=== PATIENT | male | born 2005 | race Caucasian/White ===

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

== ENCOUNTER 2023-04-24 10:14 | Emergency (ER) | payer MEDICAID, SELFPAY ==
[2023-04-24 10:26] VITALS: BP 118/60; PULSE 61; RESP 16; TEMP 37.1; O2SAT 99
--- NOTE | 2023-04-24 10:46 | W.ED.GENAD ---
Discharge Plan Disposition Patient Disposition: Home Condition: Stable Discharge Details Clinical Impression: Laceration of left palm Primary Care Provider: Angie Jorgensen ED Provider: Cee Sanches Home Meds and New Rx's Prescriptions: No Action No Known Home Meds Discharge Instructions Instructions: Laceration (ED), Skin Adhesive Care (ED) Additional Instructions: The skin adhesive will slough off in 4-6 days. Do not pick at or scrub the area. Keep covered when using your hands. Keep clean and dry. Return for signs of infection such as red streaks, drainage or swelling. Please take Tylenol or Ibuprofen with food every 4-6 hours as needed for pain and swelling. Follow up with primary care provider in 3-5 days if needed. Return to ED sooner if any worsening or concerns. Increase oral fluids. Referrals: Angie Jorgensen, [employer] [Primary Care Provider] - 1 week Medical Decision Making 17 year old male presents to ED with approx 0.5 cm laceration to left lower palm. This occurred by accident while cutting a bagel [employer]. Has full range of motion noted to hand. No other associated symptoms or complaints. Bleeding is controlled at this time. Distal CMS intact. I did recommend suturing however patient declined at this time. Dermabond applied wound well approximated range of motion intact.. I did discuss home care and strict return instructions and follow-up care if needed. Follow up with primary care provider in 3-5 days. Return to ED sooner if any worsening or concerns. Increase oral fluids. HPI General Mode of arrival: ambulatory. Date/Time Provider Initiated Documentation: 04/24/23 10:15. Limitations to Documentation: no limitations. Information obtained by: patient, RN notes reviewed and old records reviewed. HPI Narrative: 17 year old male presents to ED with approx 0.5 cm laceration to left lower palm. This occurred by accident while cutting a bagel [employer]. Has full range of motion noted to hand. No other associated symptoms or complaints. Bleeding is controlled at this time. Distal CMS intact. Related Data Home Medications Medication Instructions Recorded Confirmed Unknown [No Known Home Meds] 01/14/21 01/14/21 Allergies Allergy/AdvReac Type Severity Reaction Status Date / Time No Known Allergies Allergy Verified 04/24/23 10:30 General Stated Complaint: Laceration MARIA: 4 Review of Systems Integumentary/Breasts Skin/Breast: Reports as per HPI and Reports wounds PFSH All Active Problems (Updated 04/24/23 @ 10:50 by Cee Sanches NP) Laceration of left palm (Acute) Erythema migrans (Lyme disease) (Acute) Acne (Acute) with scarring refer to derm 05/16 OM (otitis media), recurrent (Acute 06/24/13) Decreased hearing (Acute 06/24/13) Well adolescent visit (Acute 07/03/17) Pediatric body mass index (BMI) of greater than or equal to 95th percentile for age (Acute 06/21/16) Overweight (Acute 06/24/13) Learning disability (Acute 01/10/18) IEP - Speech, hearing, and language services Speech and language disorder (Acute 06/24/13) Gynecomastia, male (Chronic) Chronic nasal congestion (Chronic) referred to ent meantime see pt instructions in Departure for details of recommendations Medical History Learning difficulty IEP - speech OM (otitis media), recurrent Surgical History Circumcision Myringotomy w/ PE (pressure equalizing) tubes Tonsillectomy and adenoidectomy Family History Mother Lyme disease Chronic Mental disorder Asthma Father No problems noted. Brother Mental disorder Grandparent Essential hypertension Heart disease Hyperlipidemia Mental disorder Neoplasm Other Mental disorder Asthma Social History Smoking/Tobacco Use Status: Never Smoking risk assessment performed?: Yes Alcohol Intake: never Drug use: Never Substance use type: does not use Do you feel safe at home: Yes Do you feel safe in your relationship?: Yes Exam Extrem Left upper extremity: hand Details: laceration palm palmar aspect proximal Details: linear Hand/finger images: 1. Approximately 0.5 cm laceration, bleeding controlled well approximated. Course Vital Signs Vital signs: Vital Signs Temperature 37.1 C 04/24/23 10:26 Pulse 61 04/24/23 10:26 Respiratory Rate 16 04/24/23 10:26 Blood Pressure 118/60 04/24/23 10:26 Pulse Oximetry 99 04/24/23 10:26 Temperature 37.1 C 04/24/23 10:26 Pulse 61 04/24/23 10:26 Respiratory Rate 16 04/24/23 10:26 Blood Pressure 118/60 04/24/23 10:26 Pulse Oximetry 99 04/24/23 10:26 Oxygen Delivery Method Room Air 04/24/23 10:26 Oxygen Flow Rate 0 04/24/23 10:26
== END 2023-04-24 11:12 | disposition home or self-care (01) ==
PROVIDERS: Emergency Provider Registered Nurse Emergency; PCP Nurse Practitioner Family
DX: S61.412A Laceration without foreign body of left hand, initial encounter (principal); W26.0XXA Contact with knife, initial encounter
CPT/HCPCS: 99283